=== PATIENT | female | born 1955 | race Caucasian/White ===

== ENCOUNTER 2019-11-01 05:41 | Inpatient (IN) ==
[2019-11-01] MEDS ORDERED: VANCOMYCIN 1,000 MG VIAL ONE (05:45)
[2019-11-01] MEDS ORDERED: ceFAZolin 1,000 MG VIAL ONE (05:45)
[2019-11-01] MEDS ORDERED: VANCOMYCIN INJ 1,000 MG in SODIUM CHLORIDE 0.9% 250 ML IV ONE (06:00)
[2019-11-01] MEDS ORDERED: ceFAZolin 1,000 MG in SYRINGE 1 EACH IV ONE (07:00)
[2019-11-01] MEDS: LACTATED RINGERS 1,000 ML IV SCH ×2 (07:15→10:30)
[2019-11-01] MEDS ORDERED: BUPIVACAINE MPF 0.5% /EPI 30 ML VIAL ONE (07:58)
[2019-11-01] MEDS ORDERED: DEXAMETHASONE 4 MG/1 ML VIAL ONE (07:58)
[2019-11-01] MEDS ORDERED: LIDOCAINE 1% 5 ML VIAL ONE (07:58)
[2019-11-01] MEDS ORDERED: MORPHINE 10 MG/10 ML VIAL ONE (09:36)
[2019-11-01] MEDS ORDERED: BUPIVACAINE SPINAL 0.75% 2 ML AMP SPINAL ONE (09:37)
[2019-11-01] MEDS ORDERED: DEXMEDETOMIDINE 200 MCG/2 ML VIAL IV ONE (09:37)
[2019-11-01] MEDS ORDERED: LACTULOSE 20 GM/30 ML UDCUP PO PRN (10:00)
[2019-11-01] MEDS ORDERED: MAGNESIUM HYDROXIDE SUSP 30 ML UDCUP PO PRN (10:00)
[2019-11-01] MEDS ORDERED: diphenhydrAMINE CAP 25 MG CAPSULE PO PRN (10:00)
[2019-11-01] MEDS ORDERED: MORPHINE 4 MG/1 ML VIAL IV PRN (10:00)
[2019-11-01] MEDS ORDERED: BISACODYL 10 MG SUPP RECTAL PRN (10:00)
[2019-11-01] MEDS ORDERED: PROMETHAZINE 25 MG/1 ML VIAL IM PRN (10:00)
[2019-11-01] MEDS ORDERED: TEMAZEPAM 7.5 MG CAPSULE PO PRN (10:00)
[2019-11-01] MEDS ORDERED: NAPROXEN 500 MG TABLET PO PRN (10:03)
[2019-11-01] MEDS ORDERED: propofoL 200 MG/20 ML VIAL IV ONE (11:27)
[2019-11-01] MEDS ORDERED: TRANEXAMIC ACID 1,000 MG/10 ML VIAL ONE (11:28)
[2019-11-01] MEDS ORDERED: GLYCOPYRROLATE 0.4 MG/2 ML VIAL ONE (11:28)
[2019-11-01] MEDS ORDERED: fentaNYL 100 MCG/2 ML VIAL ONE (11:28)
[2019-11-01] MEDS ORDERED: LACTATED RINGERS 1,000 ML IV ONE (11:28)
[2019-11-01] MEDS ORDERED: MIDAZOLAM 2 MG/2 ML VIAL ONE (11:28)
[2019-11-01] MEDS ORDERED: ONDANSETRON 4 MG/2 ML VIAL ONE (11:28)
[2019-11-01] MEDS ORDERED: diphenhydrAMINE 50 MG/1 ML VIAL IV PRN (11:30)
[2019-11-01] MEDS ORDERED: hydrOXYzine HCL 25 MG/1 ML VIAL IM PRN (11:30)
[2019-11-01 13:12] LABS: Basophils % 0.2 % (0.0-0.8); Eosinophils # 0.1 10*3/uL (0.0-0.87); Eosinophils % 0.8 % (0.00-10.9); Hematocrit 36.7 VOL% (35.7-47.0); Hemoglobin 12.4 GM/DL (12.0-16.0); Immature Granulocytes % 0.8 %; Immature Granulocytes Absolute 0.07 #; Lymphocytes # 0.8 10*3/uL (1.4-4.0); Lymphocytes % 8.4 % (21.3-54.2); Mean Corpuscular HGB Conc 33.8 GM/DL (32-36); Mean Platelet Volume 9.9 FL (9.6-12.0); Monocytes % 1.4 % (1.7-12.7); Neutrophils % 88.4 % (38.7-73.9); Platelet Count 244 T/CUMM (130-400); Red Blood Count 4.17 MC/CUMM (3.8-5.5); Red Cell Distribution Width 11.6 % (9.3-17.3); White Blood Count 9.3 T/CUMM (4-12)
[2019-11-01 13:33] LABS: Calcium 8.6 MG/DL (8.5-10.1); Osmolality,Calculated 275.5 MOS/KG (273-304)
[2019-11-01] MEDS: ONDANSETRON 4 MG/2 ML VIAL IV PRN (14:21)
[2019-11-01] MEDS: FONDAPARINUX 2.5 MG/0.5 ML SYRINGE SUBCUT SCH (21:19)
[2019-11-01] MEDS: DOCUSATE SODIUM 100 MG CAPSULE PO SCH (21:20)
[2019-11-02 05:59] LABS: Basophils % 0.2 % (0.0-0.8); Eosinophils % 0.1 % (0.00-10.9); Hematocrit 31.4 VOL% (35.7-47.0); Hemoglobin 10.6 GM/DL (12.0-16.0); Immature Granulocytes % 0.4 %; Immature Granulocytes Absolute 0.04 #; Lymphocytes # 1.4 10*3/uL (1.4-4.0); Mean Corpuscular HGB Conc 33.8 GM/DL (32-36); Mean Platelet Volume 10.2 FL (9.6-12.0); Monocytes % 7.3 % (1.7-12.7); Platelet Count 229 T/CUMM (130-400); Red Blood Count 3.57 MC/CUMM (3.8-5.5); Red Cell Distribution Width 11.7 % (9.3-17.3); White Blood Count 9.6 T/CUMM (4-12)
[2019-11-02 06:42] LABS: Calcium 8.8 MG/DL (8.5-10.1); Osmolality,Calculated 277.5 MOS/KG (273-304)
[2019-11-02] MEDS: MULTIVITAMIN (CENTRUM) TABLET PO SCH (09:20)
[2019-11-02] MEDS: DOCUSATE SODIUM 100 MG CAPSULE PO SCH ×2 (09:20→21:28)
[2019-11-02] MEDS: ASCORBIC ACID VITAMIN E BIOTIN PO SCH (09:21)
[2019-11-02] MEDS: SKIN PO SCH (09:21)
[2019-11-02] MEDS: BIOTIN PO SCH (09:21)
[2019-11-02] MEDS: FONDAPARINUX 2.5 MG/0.5 ML SYRINGE SUBCUT SCH (21:28)
[2019-11-03] MEDS: DOCUSATE SODIUM 100 MG CAPSULE PO SCH (09:04)
[2019-11-03] MEDS: MULTIVITAMIN (CENTRUM) TABLET PO SCH (09:04)
[2019-11-03] MEDS: BIOTIN PO SCH (09:06)
[2019-11-03] MEDS: SKIN PO SCH (09:06)
[2019-11-03] MEDS: ASCORBIC ACID VITAMIN E BIOTIN PO SCH (09:06)
[2019-11-03] MEDS: ONDANSETRON 4 MG/2 ML VIAL IV PRN (09:47)
[2019-11-03 12:12] VITALS: BP 111/60
== END 2019-11-03 12:40 | disposition home health service (06) | DRG 470 ==
LOC: N.OR 05:41 → N.SDSINP 05:41 → N.3E 12:12
PROVIDERS: ADMIT Orthopaedic Surgery; ATTEND Orthopaedic Surgery

== ENCOUNTER 2020-07-25 05:51 | Inpatient (IN) ==
[2020-07-25] MEDS ORDERED: ceFAZolin 1,000 MG in SYRINGE 1 EACH IV ONE (06:00)
[2020-07-25] MEDS ORDERED: VANCOMYCIN INJ 1,000 MG in SODIUM CHLORIDE 0.9% 250 ML IV ONE (06:00)
[2020-07-25] MEDS ORDERED: ceFAZolin 1,000 MG VIAL ONE (07:29)
[2020-07-25] MEDS ORDERED: VANCOMYCIN 1,000 MG VIAL ONE (07:29)
[2020-07-25] MEDS ORDERED: LACTATED RINGERS 1,000 ML IV SCH (07:30)
[2020-07-25] MEDS ORDERED: DEXAMETHASONE 4 MG/1 ML VIAL ONE (09:28)
[2020-07-25] MEDS ORDERED: ROPIVACAINE 0.5% 30 ML VIAL ONE (09:29)
[2020-07-25] MEDS ORDERED: LACTULOSE 20 GM/30 ML UDCUP PO PRN (10:40)
[2020-07-25] MEDS ORDERED: BISACODYL 10 MG SUPP RECTAL PRN (10:40)
[2020-07-25] MEDS ORDERED: PROMETHAZINE 25 MG/1 ML VIAL IM PRN (10:40)
[2020-07-25] MEDS ORDERED: diphenhydrAMINE CAP 25 MG CAPSULE PO PRN (10:40)
[2020-07-25] MEDS ORDERED: MAGNESIUM HYDROXIDE SUSP 30 ML UDCUP PO PRN (10:40)
[2020-07-25] MEDS ORDERED: ONDANSETRON 4 MG/2 ML VIAL IV PRN (10:40)
[2020-07-25] MEDS ORDERED: TEMAZEPAM 7.5 MG CAPSULE PO PRN (10:40)
[2020-07-25] MEDS ORDERED: LORATADINE 10 MG TABLET PO PRN (10:42)
[2020-07-25] MEDS ORDERED: NAPROXEN 500 MG TABLET PO PRN (10:42)
[2020-07-25] MEDS ORDERED: fentaNYL 100 MCG/2 ML VIAL ONE (11:58)
[2020-07-25] MEDS ORDERED: DEXMEDETOMIDINE 200 MCG/2 ML VIAL ONE (11:59)
[2020-07-25] MEDS ORDERED: TRANEXAMIC ACID 1,000 MG/10 ML VIAL ONE (11:59)
[2020-07-25] MEDS ORDERED: ONDANSETRON 4 MG/2 ML VIAL ONE (11:59)
[2020-07-25] MEDS ORDERED: ACETAMINOPHEN 1,000 MG/100 ML VIAL IV ONE (11:59)
[2020-07-25] MEDS ORDERED: ePHEDrine 50 MG/ML VIAL ONE (11:59)
[2020-07-25] MEDS ORDERED: MIDAZOLAM 2 MG/2 ML VIAL ONE (11:59)
[2020-07-25] MEDS ORDERED: INFLUENZA VIRUS VACCINE 0.5 ML SYRINGE IM ONE (16:04)
[2020-07-25] MEDS: ceFAZolin 1,000 MG in SYRINGE 1 EACH IV SCH ×2 (16:40→23:00)
[2020-07-25] MEDS: MORPHINE 4 MG/1 ML VIAL IV PRN (22:02)
[2020-07-25] MEDS: DOCUSATE SODIUM 100 MG CAPSULE PO SCH (22:08)
[2020-07-25] MEDS: FONDAPARINUX 2.5 MG/0.5 ML SYRINGE SUBCUT SCH (22:08)
[2020-07-26] MEDS: MORPHINE 4 MG/1 ML VIAL IV PRN (01:06)
[2020-07-26 05:19] LABS: Basophils % 0.1 % (0.0-0.8); Eosinophils % 0.1 % (0.00-10.9); Hematocrit 32.8 VOL% (35.7-47.0); Immature Granulocytes % 0.6 %; Immature Granulocytes Absolute 0.07 #; Lymphocytes # 1.3 10*3/uL (1.4-4.0); Lymphocytes % 10.5 % (21.3-54.2); Mean Corpuscular HGB Conc 33.5 GM/DL (32-36); Mean Platelet Volume 10.1 FL (9.6-12.0); Monocytes % 6.4 % (1.7-12.7); Neutrophils % 82.3 % (38.7-73.9); Platelet Count 273 T/CUMM (130-400); Red Blood Count 3.77 MC/CUMM (3.8-5.5); White Blood Count 12.6 T/CUMM (4-12)
[2020-07-26 05:42] LABS: Calcium 9.1 MG/DL (8.5-10.1); Osmolality,Calculated 276.7 MOS/KG (273-304)
[2020-07-26] MEDS: DOCUSATE SODIUM 100 MG CAPSULE PO SCH ×2 (09:22→20:55)
[2020-07-26] MEDS: SERTRALINE 25 MG TABLET PO SCH (09:22)
[2020-07-26] MEDS: MULTIVITAMIN (CENTRUM) TABLET PO SCH (09:22)
[2020-07-26] MEDS: MULTIVITAMIN (BEROCCA) TABLET PO SCH (09:22)
[2020-07-26] MEDS: NON-FORMULARY MEDICATION (Ascorbic Acid-Vitamin E-Biotin [Hair, Skin, Nails With Biotin] 7 PO SCH (10:49)
[2020-07-26] MEDS: FONDAPARINUX 2.5 MG/0.5 ML SYRINGE SUBCUT SCH (20:55)
[2020-07-27] MEDS: MORPHINE 4 MG/1 ML VIAL IV PRN (05:48)
[2020-07-27 07:29] VITALS: BP 109/65
[2020-07-27] MEDS: SERTRALINE 25 MG TABLET PO SCH (08:45)
[2020-07-27] MEDS: MULTIVITAMIN (BEROCCA) TABLET PO SCH (08:45)
[2020-07-27] MEDS: DOCUSATE SODIUM 100 MG CAPSULE PO SCH (08:45)
[2020-07-27] MEDS: MULTIVITAMIN (CENTRUM) TABLET PO SCH (08:45)
[2020-07-27] MEDS: NON-FORMULARY MEDICATION (Ascorbic Acid-Vitamin E-Biotin [Hair, Skin, Nails With Biotin] 7 PO SCH (08:50)
[2020-07-27] MEDS: FONDAPARINUX 2.5 MG/0.5 ML SYRINGE SUBCUT SCH (10:23)
== END 2020-07-27 11:30 | disposition home health service (06) | DRG 470 ==
LOC: N.OR 05:51 → N.SDSINP 05:53 → N.3E 15:46
PROVIDERS: ADMIT Orthopaedic Surgery; ATTEND Orthopaedic Surgery